=== PATIENT | female | born 1990 | race Caucasian/White ===

== ENCOUNTER 2020-12-27 12:23 | Inpatient (IN) | payer MEDICAID, OTHER ==
--- NOTE | 2020-12-27 12:46 | ED ---
General Adult HPI - General Chief complaint: Psychiatric Symptoms Stated complaint: EPS eval Time Seen by Provider: 12/27/20 12:32 Source: patient, RN notes reviewed, old records reviewed Mode of arrival: ambulatory Limitations: no limitations - History of Present Illness Initial comments: 30-year-old female presenting for psychiatric evaluation. Patient states she's had increased depression, intermittent suicidal thoughts. She denies suicide attempt. She admits to alcohol consumption earlier today. She denies illicit drugs. She denies medication overdose. She has no physical complaints - Related Data Home Medications Medication Instructions Recorded Confirmed Naltrexone HCl [Revia] 50 mg PO DAILY 12/27/20 12/27/20 Pregabalin [Lyrica] 150 mg PO DAILY 12/27/20 12/27/20 Sertraline [Zoloft] 50 mg PO DAILY 12/27/20 12/27/20 lamoTRIgine [LaMICtal] 25 mg PO DAILY 12/27/20 12/27/20 Allergies Allergy/AdvReac Type Severity Reaction Status Date / Time No Known Allergies Allergy Verified 12/27/20 13:41 Review of Systems ROS Statement: Those systems with pertinent positive or pertinent negative responses have been documented in the HPI. ROS Other: All systems not noted in ROS Statement are negative. Past Medical History Past Medical History: No Reported History History of Any Multi-Drug Resistant Organisms: None Reported Past Surgical History: Appendectomy, Cholecystectomy, Tubal Ligation Past Psychological History: Bipolar, Depression Smoking Status: Never smoker Past Alcohol Use History: Daily, Heavy Past Drug Use History: Marijuana General Exam Limitations: no limitations General appearance: alert, anxious Head exam: Present: atraumatic, normocephalic Eye exam: Present: normal appearance, PERRL ENT exam: Present: normal exam Neck exam: Present: normal inspection. Absent: tenderness, meningismus Respiratory exam: Present: normal lung sounds bilaterally. Absent: respiratory distress Cardiovascular Exam: Present: normal rhythm, tachycardia GI/Abdominal exam: Present: soft. Absent: distended, tenderness Extremities exam: Present: normal inspection, normal capillary refill. Absent: pedal edema Neurological exam: Present: alert, oriented X3, CN II-XII intact. Absent: motor sensory deficit Psychiatric exam: Present: depressed, suicidal ideation Skin exam: Present: warm, dry, intact. Absent: cyanosis, diaphoretic Course Vital Signs 12/27/20 12:26 Temperature 98.8 F Pulse Rate 120 H Respiratory 16 Rate Blood Pressure 148/78 O2 Sat by Pulse 100 Oximetry - Reevaluation(s) Reevaluation #1: 12/27/20 12:45 Patient cleared for EPS Medical Decision Making - Medical Decision Making Patient has signed and for inpatient psychiatric evaluation and treatment. She will be admitted to this institution. - Lab Data Lab Results 12/27/20 Range/Units 13:48 Urine Opiates Screen Not Detected (NotDetected) Ur Oxycodone Screen Not Detected (NotDetected) Urine Methadone Screen Not Detected (NotDetected) Ur Propoxyphene Screen Not Detected (NotDetected) Ur Barbiturates Screen Not Detected (NotDetected) U Tricyclic Antidepress Not Detected (NotDetected) Ur Phencyclidine Scrn Not Detected (NotDetected) Ur Amphetamines Screen Not Detected (NotDetected) U Methamphetamines Scrn Not Detected (NotDetected) U Benzodiazepines Scrn Not Detected (NotDetected) Urine Cocaine Screen Not Detected (NotDetected) U Marijuana (THC) Screen Detected H (NotDetected) Disposition Clinical Impression: Depression, Suicidal ideation Disposition: ADMITTED IP TO THIS [facility] Condition: Stable Is patient prescribed a controlled substance at d/c from ED?: No Referrals: Gumaro Barroso MD [Primary Care Provider] - 1-2 days Decision to Admit Reason: Admit from EC Decision Date: 12/27/20 Decision Time: 14:50
[2020-12-27 14:23] LABS: Amphetamine Screen,Urine Not Detected (NotDetected); Barbiturate Screen,Urine Not Detected (NotDetected); Benzodiazepines Screen,Urine Not Detected (NotDetected); Cocaine Screen,Urine Not Detected (NotDetected); Methadone Screen, Urine Not Detected (NotDetected); Opiate Screen,Urine Not Detected (NotDetected); Oxycodone Screen, Urine Not Detected (NotDetected); Phencyclidine Screen,Urine Not Detected (NotDetected); Tricyclic Antidepressant,Urine Not Detected (NotDetected); Urn Cannabinoid Scrn Detected (NotDetected)
[2020-12-27] MEDS ORDERED: MAGNESIUM HYDROXIDE 2,400 MG/10 ML CUP PO PRN (17:15)
[2020-12-27] MEDS ORDERED: MAG HYDROX/AL HYDROX/SIMETH 30 ML CUP PO PRN (17:15)
[2020-12-27] MEDS ORDERED: ACETAMINOPHEN TAB 325 MG TAB PO PRN (17:15)
[2020-12-27] MEDS ORDERED: LORazepam 1 MG TAB PO PRN (17:15)
[2020-12-27] MEDS ORDERED: LORazepam 2 MG/ML INJ IM PRN (17:27)
[2020-12-27] MEDS ORDERED: HALOPERIDOL LACTATE 5 MG/ML 1 ML VIAL IM PRN (17:28)
[2020-12-27] MEDS ORDERED: haloperidoL 5 MG TAB PO PRN (17:28)
[2020-12-27] MEDS: PREGABALIN 75 MG CAP PO SCH (22:03)
[2020-12-28 06:43] LABS: Basophils # (A) 0.1 k/uL (0-0.2); Basophils % (A) 1 %; Eosinophils # (A) 0.3 k/uL (0-0.7); Eosinophils % (A) 3 %; HCT 43.5 % (34.0-46.0); HGB 14.3 gm/dL (11.4-16.0); Lymphocytes # (A) 2.8 k/uL (1.0-4.8); Lymphocytes % (A) 29 %; MCH 32.9 pg (25.0-35.0); MCHC 32.9 g/dL (31.0-37.0); MCV 99.8 fL (80.0-100.0); Mean Platelet Volume 8.4; Monocytes # (A) 0.7 k/uL (0-1.0); Monocytes % (A) 7 %; Neutrophils # (A) 5.8 k/uL (1.3-7.7); Neutrophils % (A) 59 %; Platelet Count 222 k/uL (150-450); RBC 4.36 m/uL (3.80-5.40); RDW 12.1 % (11.5-15.5); WBC 9.8 k/uL (3.8-10.6)
[2020-12-28 07:00] LABS: ALT 14 U/L (4-34); AST 28 U/L (14-36); African American GFR (CKD) >90 (>60 ml/min/1.73 sqM); Alkaline Phosphatase 47 U/L (38-126); Anion Gap 7 mmol/L; Blood Urea Nitrogen 7 mg/dL (7-17); Calcium 9.5 mg/dL (8.4-10.2); Carbon Dioxide 27 mmol/L (22-30); Chloride 105 mmol/L (98-107); Glucose 91 mg/dL (74-99); Non-African American GFR(CKD) >90 (>60 ml/min/1.73 sqM); Potassium 4.5 mmol/L (3.5-5.1); Sodium 139 mmol/L (137-145); Total Bilirubin 1.4 mg/dL (0.2-1.3); Total Protein 6.9 g/dL (6.3-8.2)
[2020-12-28] MEDS: NALTREXONE HCL 50 MG TAB PO SCH (09:05)
[2020-12-28] MEDS: SERTRALINE 100 MG TAB PO SCH (09:05)
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
[2020-12-28] MEDS: PREGABALIN 75 MG CAP PO SCH (20:08)
[2020-12-29 06:43] VITALS: BP 117/73; PULSE 67; RESP 16; TEMP 98.1
[2020-12-29] MEDS: SERTRALINE 100 MG TAB PO SCH (08:32)
[2020-12-29] MEDS: NALTREXONE HCL 50 MG TAB PO SCH (08:32)
--- NOTE | 2020-12-29 11:38 | P.DS ---
Providers Date of admission: 12/27/20 16:48 Expected date of discharge: 12/29/20 Attending physician: Andrew Garcia MD Consults: 12/27/20 17:15 Consult Physician Routine Consulting Provider: Charli Judd Consult Reason/Comments: H&P Do you want consulting provider notified?: Yes Primary care physician: Gumaro Barroso - Discharge Diagnosis(es) (1) Depressive disorder Current Visit: Yes Status: Acute Priority: High (2) Cannabis use disorder, mild, abuse Current Visit: Yes Status: Acute Priority: Medium (3) Alcohol abuse Current Visit: Yes Status: Acute Priority: Medium Hospital Course: Admission HPI: Admission note was completed by Dr. Cosme "The patient is a 30-year-old female who presented to the ED acutely distressed. Her presenting compliant with that she feels "very unstable" and talked about having intermittent suicidal thoughts. I interviewed the patient and reviewed the chart. She told the EPS nurse that she was feeling depressed. She was out drinking with her sister on the evening prior to admission. She has a history of alcohol use problems and was prescribed ReVia by her primary for treatment of her alcohol use. She planned on going out drinking with a girlfriend and talked about discussing this plan with her primary care provider. Instead of going out girlfriend she went with her sister to a bar and drank excessively. She stated that she spent the night with the man she described an "enemy" of her boyfriend. The following morning she felt guilty and remorseful. She came to the emergency room because she would talk about her concerns with her primary care provider. She had expectation that if she were able to speak with a physician she would become calm and be able to return home to her boyfriend. The original recommendation was to discharge home with referrals for outpatient mental health services. However, she told the ER physician that her plan was to go to her alvarez and start a fire. The ED physician interpreted this as a suicide plan. She stated that her family has a rustic cabin with no heat or electricity. She goes with When she wants to find "peace". Her plan was to start a fire in the fireplace and spend the night there to calm herself before she returns home. She described fleeting thoughts of suicide since she started Lamictal. She denied suicide intent or plan. She denied a history of suicide attempts or gestures. Her primary concern was her alcohol use and she talked about the struggle she has with controlling her alcohol use. She believes that she has been drinking less since she started ReVia. She denied use of drugs with the exception of marijuana. She has a history of depression for which the primary prescribed Zoloft but the maximum dose was only 50 mg per day. The primary added Lamictal to augment the lower dose of the antidepressant. She denied a history of elevated mood or sustained irritability suggestive of yina or hypomania. She denied persistent uncontrolled anxiety that interfered with her ability to function. She denied obsessions or compulsions. She denied such psychotic symptoms as hallucinations, paranoia or confusion." Hospital course: Upon admission to the unit patient was initially depressed however cooperative and directable and agreeable to commence treatment and signed adult voluntary form. Patient got along well with other patients on the unit and followed unit protocol. Patient was compliant with the medications and denied any side effects throughout hospital course. Patient was started on Zoloft and titrate up the dose of 100 mg daily for mood/anxiety. Patient was also restarted on her naltrexone 50 mg daily for alcohol cravings. Patient spoke of her stressors and engaged in therapy both group and individual. Patient was also seen by medical team for history and physical exam. Throughout the course of the hospitalization patient gradually improved with regards to mood, anxiety, sleep and became more future oriented with improved insight and judgment. On the day of discharge patient denied any suicidal or homicidal ideations intent or plan denied any auditory or visual hallucinations. Patient endorsed wanting to live for her kids and her future. The patient denied any access to guns or weapons. Patient denied any paranoia and did not endorse any delusions. Patient does have a significant history of substance abuse and was counseled on abstaining from all substances including alcohol and marijuana. Patient elected to do outpatient substance use treatment program for her substance abuse and also agreed to continue taking naltrexone for alcohol cravings. Patient was also counseled on the medications and need for regular compliance and was encouraged to follow-up with their outpatient appointment for mental health and also for primary care. Prior to discharge a family meeting with patient's boyfriend Jagjit will be arranged by director social to answer any questions and ensure safety upon discharge and to ensure that there are no guns/weapons in the house or that they are locked away. Mental status exam: General Appearance: Patient appears to be thin, stated age is alert, pleasant, and cooperative. Patient is in no acute distress and has improved hygiene and grooming Behavior: Patient is calmly seated without any agitated behavior. Speech: Patient's speech is fluent and nonpressured. Mood/Affect: Patient reports their mood is "good", affect is congruent and euthymic. Suicidality/Homicidality: Patient denies having any suicidal or homicidal ideation intent or plan. Perceptions: Patient denies any auditory or visual hallucinations. Though content/process: There is no evidence of any delusional thought content and thought process is linear and goal-directed. more future oriented Memory and concentration: AOX3, grossly intact for the purposes of this session. Can spell "WORLD" backwards correctly. Judgment and insight: improved with guarded prognosis Impression: Depressive disorder unspecified, rule out major depressive disorder recurrent versus alcohol-induced depressive disorder Alcohol abuse Cannabis use disorder mild Plan: -Continue with discharge today as patient has improved and stabilized psychiatrically and is not currently an imminent threat to herself and/or others. -Continue medications: Continue Zoloft 100 mg daily for mood/anxiety, naltrexone 50 mg daily for alcohol cravings. -Patient was counseled on the need for medication compliance and appropriate follow-up at mental health and also primary care for medical issues. Patient verbalized understanding and agreed. -Social work to arrange for and conduct family meeting to ensure safety upon discharge and answer any questions/concerns. Social work also to arrange for patients follow up appointments with [facility] for psychiatric care along with follow up with primary care provider. -Patient counseled on abstaining from recreational drugs and marijuana and alcohol. Was informed/educated on the adverse effects on their physical and mental health. Patient verbally agreed and understood. Patient was agreeable to continue on with outpatient treatment and also to continue on with naltrexone for alcohol cravings. -Patient was instructed to return to the hospital or seek immediate medical care if their psychiatric or medical symptoms do worsen or reoccur. Allergies Allergy/AdvReac Type Severity Reaction Status Date / Time No Known Allergies Allergy Verified 12/27/20 13:41 Laboratory Results WBC 9.8 k/uL (3.8-10.6) 12/28/20 06:22 RBC 4.36 m/uL (3.80-5.40) 12/28/20 06:22 Hgb 14.3 gm/dL (11.4-16.0) 12/28/20 06:22 Hct 43.5 % (34.0-46.0) 12/28/20 06:22 MCV 99.8 fL (80.0-100.0) 12/28/20 06:22 MCH 32.9 pg (25.0-35.0) 12/28/20 06:22 MCHC 32.9 g/dL (31.0-37.0) 12/28/20 06:22 RDW 12.1 % (11.5-15.5) 12/28/20 06:22 Plt Count 222 k/uL (150-450) 12/28/20 06:22 MPV 8.4 12/28/20 06:22 Neutrophils % 59 % 12/28/20 06:22 Lymphocytes % 29 % 12/28/20 06:22 Monocytes % 7 % 12/28/20 06:22 Eosinophils % 3 % 12/28/20 06:22 Basophils % 1 % 12/28/20 06:22 Neutrophils # 5.8 k/uL (1.3-7.7) 12/28/20 06:22 Lymphocytes # 2.8 k/uL (1.0-4.8) 12/28/20 06:22 Monocytes # 0.7 k/uL (0-1.0) 12/28/20 06:22 Eosinophils # 0.3 k/uL (0-0.7) 12/28/20 06:22 Basophils # 0.1 k/uL (0-0.2) 12/28/20 06:22 Sodium 139 mmol/L (137-145) 12/28/20 06:22 Potassium 4.5 mmol/L (3.5-5.1) 12/28/20 06:22 Chloride 105 mmol/L (98-107) 12/28/20 06:22 Carbon Dioxide 27 mmol/L (22-30) 12/28/20 06:22 Anion Gap 7 mmol/L 12/28/20 06:22 BUN 7 mg/dL (7-17) 12/28/20 06:22 Creatinine 0.59 mg/dL (0.52-1.04) 12/28/20 06:22 Est GFR (CKD-EPI)AfAm >90 (>60 ml/min/1.73 sqM) 12/28/20 06:22 Est GFR (CKD-EPI)NonAf >90 (>60 ml/min/1.73 sqM) 12/28/20 06:22 Glucose 91 mg/dL (74-99) 12/28/20 06:22 Calcium 9.5 mg/dL (8.4-10.2) 12/28/20 06:22 Total Bilirubin 1.4 mg/dL (0.2-1.3) H 12/28/20 06:22 AST 28 U/L (14-36) 12/28/20 06:22 ALT 14 U/L (4-34) 12/28/20 06:22 Alkaline Phosphatase 47 U/L (38-126) 12/28/20 06:22 Total Protein 6.9 g/dL (6.3-8.2) 12/28/20 06:22 Albumin 4.0 g/dL (3.5-5.0) 12/28/20 06:22 TSH 2.820 mIU/L (0.465-4.680) 12/28/20 06:22 Urine Opiates Screen Not Detected (NotDetected) 12/27/20 13:48 Ur Oxycodone Screen Not Detected (NotDetected) 12/27/20 13:48 Urine Methadone Screen Not Detected (NotDetected) 12/27/20 13:48 Ur Propoxyphene Screen Not Detected (NotDetected) 12/27/20 13:48 Ur Barbiturates Screen Not Detected (NotDetected) 12/27/20 13:48 U Tricyclic Antidepress Not Detected (NotDetected) 12/27/20 13:48 Ur Phencyclidine Scrn Not Detected (NotDetected) 12/27/20 13:48 Ur Amphetamines Screen Not Detected (NotDetected) 12/27/20 13:48 U Methamphetamines Scrn Not Detected (NotDetected) 12/27/20 13:48 U Benzodiazepines Scrn Not Detected (NotDetected) 12/27/20 13:48 Urine Cocaine Screen Not Detected (NotDetected) 12/27/20 13:48 U Marijuana (THC) Screen Detected (NotDetected) H 12/27/20 13:48 Coronavirus (PCR) Not Detected (Not Detectd) 12/27/20 15:16 Vital Signs Temp 98.1 F 12/29/20 06:42 Pulse 67 12/29/20 06:42 Resp 16 12/29/20 06:42 BP 117/73 12/29/20 06:42 Pulse Ox 98 12/27/20 17:07 Intake & Output 12/28/20 12/29/20 12/29/20 18:59 06:59 18:59 Weight 66.4 kg Patient Condition at Discharge: Stable Plan - Discharge Summary Discharge Rx Participant: No New Discharge Prescriptions: New Naltrexone HCl [Revia] 50 mg PO DAILY 30 Days tab Sertraline [Zoloft] 100 mg PO DAILY 30 Days tab Continue Pregabalin [Lyrica] 150 mg PO DAILY Discontinued lamoTRIgine [LaMICtal] 25 mg PO DAILY Sertraline [Zoloft] 50 mg PO DAILY Naltrexone HCl [Revia] 50 mg PO DAILY Discharge Medication List Pregabalin [Lyrica] 150 mg PO DAILY 12/27/20 [History] Naltrexone HCl [Revia] 50 mg PO DAILY 30 Days tab 12/29/20 [Rx] Sertraline [Zoloft] 100 mg PO DAILY 30 Days tab 12/29/20 [Rx] Follow up Appointment(s)/Referral(s): Gumaro Barroso MD [Primary Care Provider] - 1-2 days Activity/Diet/Wound Care/Special Instructions: Activity and diet as tolerated. Avoid the use of street drugs and alcohol. Take all medications as prescribed. When you are in need of refills on your medications please contact your medical provider and/or outpatient psychiatrist to have this done. Please go to scheduled outpatient appointment for aftercare treatment. If symptoms return or become worse, call the crisis line at and/or go to the nearest emergency room for evaluation. Discharge Disposition: HOME SELF-CARE
== END 2020-12-29 13:42 | disposition home or self-care (01) | DRG 897 ==
LOC: EC 12:23 → 3MHU 16:48
PROVIDERS: ADMIT Psychiatry & Neurology Psychiatry; ATTEND Psychiatry & Neurology Psychiatry
DX: F10.24 Alcohol dependence with alcohol-induced mood disorder (principal); R45.851 Suicidal ideations; F12.10 Cannabis abuse, uncomplicated; Z71.41 Alcohol abuse counseling and surveillance of alcoholic; Z20.822 Contact with and (suspected) exposure to COVID-19; F41.9 Anxiety disorder, unspecified; G25.81 Restless legs syndrome; Z79.899 Other long term (current) drug therapy; Z90.49 Acquired absence of other specified parts of digestive tract; Z98.51 Tubal ligation status
CPT/HCPCS: 80053; 80306; 82075; 84443; 85025; 87635; 99285

== ENCOUNTER 2023-01-07 21:44 | Emergency (ER) | payer OTHER ==
[2023-01-07 21:50] VITALS: TEMP 97.4
[2023-01-07] MEDS ORDERED: MORPHINE SULFATE 4 MG/ML SYRINGE IM STA (22:28)
--- NOTE | 2023-01-07 22:40 | ED ---
General Adult HPI - General Chief complaint: Fall Stated complaint: Fall, Head Injury Time Seen by Provider: 01/07/23 21:54 Source: patient Mode of arrival: wheelchair Limitations: no limitations - History of Present Illness Initial comments: Dictation was produced using [employer] dictation software. please excuse any grammatical, word or spelling errors. Chief Complaint: 32-year-old female presents with head pain and neck pain and back pain and elbow pain after fall History of Present Illness: Patient is a 32-year-old female at 9 AM she was in the shower at the local gym. She slipped fell backwards she struck her head. Denies loss of consciousness. Patient had an interview that she didn't want a message with the interview instead of seeking medical attention. Patient does not take any anticoagulant medications. She denies any past medical history. She complains of elbow pain. She is able to ambulate with no problems. She has had some nausea and vomiting over the last couple hours. Denies any numbness or paresthesias to the arms or legs. The ROS documented in this emergency department record has been reviewed and confirmed by me. Those systems with pertinent positive or negative responses have been documented in the HPI. All other systems are other negative and/or noncontributory. PHYSICAL EXAM: General Impression: Alert and oriented x3, not in acute distress HEENT: Normocephalic atraumatic, extra-ocular movements intact, pupils equal and reactive to light bilaterally, mucous membranes moist. Cardiovascular: Heart regular rate and rhythm Chest: Able to complete full sentences, no retractions, no tachypnea Abdomen: abdomen soft, non-tender, non-distended, no organomegaly Musculoskeletal: Pulses present and equal in all extremities, no peripheral edema Motor: no focal deficits noted Neurological: CN II-XII grossly intact, no focal motor or sensory deficits noted Skin: Intact with no visualized rashes Psych: Normal affect and mood ED course: 32-year-old well-appearing female presents to emergency department after mechanical fall. Allegedly occurred at around 9 AM. vital signs upon arrival are within acceptable limits. Symptoms likely secondary concussion. Nursing notes and chart review was performed Was pt. sent in by a medical professional or institution (, PA, [employer]/SUPERINTENDANT, urgent care, hospital, or prison...) When possible be specific @ -No Did you speak to anyone other than the patient for history (EMS, parent, family, police, friend...)? What history was obtained from this source @ -No Did you review nursing and triage notes (agree or disagree)? Why? @ -I reviewed and agree with nursing and triage notes Were old charts reviewed (outside hosp., previous admission, EMS record, old EKG, old radiological studies, urgent care reports/EKG's, prison records)? Report findings @ -No old charts were reviewed Differential Diagnosis (chest pain, altered mental status, abdominal pain women, abdominal pain men, vaginal bleeding, musculoskeletal, weakness, fever, dyspnea, syncope, headache, dizziness, GI bleed, back pain, seizure, CVA, palpatations, mental health)? @ -not applicable EKG interpreted by me (3pts min.). @ -None done X-rays interpreted by me (1pt min.). @ -Above x-rays unremarkable. CT interpreted by me (1pt min.). @ -Skin the head C-spine and lumbar spine are all negative. U/S interpreted by me (1pt. min.). @ -None done What testing was considered but not performed or refused? (CT, X-rays, U/S, labs)? Why? @ -None What meds were considered but not given or refused? Why? @ -None Did you discuss the management of the patient with other professionals (professionals i.e. , PA, [employer]/SUPERINTENDANT, lab, RT, psych nurse, addiction social worker, court deputy, teacher, privacy officer, human services case manager)? Give summary @ -No Was smoking cessation discussed for >3mins.? @ -No Was critical care preformed (if so, how long)? @ -No Were there social determinants of health that impacted care today? How? (Homelessness, low income, unemployed, alcoholism, drug addiction, transportation, low edu. Level, literacy, decrease access to med. care, fci, rehab)? @ -No Was there de-escalation of care discussed even if they declined (Discuss DNR or withdrawal of care, Hospice)? DNR status @ -No What co-morbidities impacted this encounter? (DM, HTN, Smoking, COPD, CAD, Cancer, CVA, ARF, Chemo, Hep., AIDS, mental health diagnosis, sleep apnea, morbid obesity)? @ -None Was patient admitted / discharged? Hospital course, mention meds given and route, prescriptions, significant lab abnormalities, going to OR and other pertinent info. @ -Year-old female who is well-appearing presents emergency department after fall. Imaging studies are negative for traumatic processes. presentation suspicious for concussion. Patient given starter pack for antinausea medications. Advised follow-up with primary care doctor. Patient counseled on no exertional activity until cleared by primary care doctor. Undiagnosed new problem with uncertain prognosis? @ -No Drug Therapy requiring intensive monitoring for toxicity (Heparin, Nitro, Insulin, Cardizem)? @ -No Were any procedures done? @ -No Diagnosis/symptom? Acute, or Chronic, or Acute on Chronic? Uncomplicated (without systemic symptoms) or Complicated (systemic symptoms)? @ -1. Acute concussion, 2. Head contusion, neck strain and elbow contusion Side effects of treatment? @ -No Exacerbation, Progression, or Severe Exacerbation? @ -No Poses a threat to life or bodily function? How? (Chest pain, [place], IA, pneumonia, PE, COPD, DKA, ARF, appy, cholecystitis, CVA, Diverticulitis, Homicidal, Suicidal, threat to staff... and all critical care pts) @ -No - Related Data Home Medications Medication Instructions Recorded Confirmed Ferrous Sulfate [Feosol] 325 mg PO HS 09/22/20 09/22/20 Pregabalin [Lyrica] 150 mg PO HS 09/22/20 09/22/20 Sertraline [Zoloft] 25 mg PO HS 09/22/20 09/22/20 Pregabalin [Lyrica] 150 mg PO DAILY 12/27/20 12/27/20 Previous Rx's Medication Instructions Recorded Famotidine [Pepcid] 20 mg PO HS #30 tablet 09/22/20 Ondansetron [Zofran ODT] 4 mg PO Q8HR PRN #10 tab 09/22/20 Naltrexone HCl [Revia] 50 mg PO DAILY 30 Days tab 12/29/20 Sertraline [Zoloft] 100 mg PO DAILY 30 Days tab 12/29/20 Allergies Allergy/AdvReac Type Severity Reaction Status Date / Time No Known Allergies Allergy Verified 01/07/23 21:50 Review of Systems ROS Statement: Those systems with pertinent positive or pertinent negative responses have been documented in the HPI. ROS Other: All systems not noted in ROS Statement are negative. Past Medical History Past Medical History: No Reported History Additional Past Medical History / Comment(s): restless legs History of Any Multi-Drug Resistant Organisms: None Reported Past Surgical History: Appendectomy, Cholecystectomy, Tubal Ligation Additional Past Surgical History / Comment(s): wisdom teeth extraction Past Anesthesia/Blood Transfusion Reactions: No Reported Reaction Past Psychological History: Anxiety, Bipolar, Depression Smoking Status: Never smoker Past Alcohol Use History: Daily, Heavy Past Drug Use History: Marijuana - Past Family History Brother(s) Additional Family Medical History / Comment(s): gall bladder surgery General Exam Limitations: no limitations Course Vital Signs 01/07/23 21:46 Temperature 97.4 F L Pulse Rate 55 L Respiratory 20 Rate Blood Pressure 137/86 O2 Sat by Pulse 99 Oximetry Disposition Clinical Impression: Concussion Disposition: HOME SELF-CARE Condition: Good Instructions (If sedation given, give patient instructions): Concussion (ED) Is patient prescribed a controlled substance at d/c from ED?: No Referrals: Gumaro Barroso MD [Primary Care Provider] - 1-2 days Time of Disposition: 23:13
--- NOTE | 2023-01-07 22:59 | CT ---
EXAMINATION TYPE: CT brain cspine wo con DATE OF EXAM: 01/07/2023 COMPARISON: CT brain 03/11/2018 HISTORY: syncope CT DLP: 1400.6 mGycm Automated exposure control for dose reduction was used. Images obtained of the brain and cervical spine with no contrast. Ventricles have normal size. There is no mass effect or midline shift. No sign of intracranial hemorr pablo. Calvarium is intact. There is normal aeration of the mastoid sinuses. The skull base is intact. The cervical vertebra have normal alignment. Disc spaces are fairly normal. No compression fracture. Facet joints are intact. Prevertebral soft tissues are intact IMPRESSION: Negative CT scan of the brain. Negative CT scan cervical spine.
--- NOTE | 2023-01-07 23:02 | XR ---
EXAMINATION TYPE: XR elbow complete RT DATE OF EXAM: 01/07/2023 COMPARISON: NONE HISTORY: Pain. Fall TECHNIQUE: 3 views FINDINGS: There is no evidence of fracture nor dislocation. Elbow joint spaces are normal. No patholo gic calcification. IMPRESSION: Negative right elbow exam.
--- NOTE | 2023-01-07 23:03 | CT ---
EXAMINATION TYPE: CT lumbar spine wo con DATE OF EXAM: 01/07/2023 COMPARISON: 09/22/2020 HISTORY: syncope Back pain CT DLP: 2134.2 mGycm Automated exposure control for dose reduction was used. Images obtained from T12 to S3 vertebra with no contrast. Normal spacing and alignment. Posterior elements are intact. No compression fracture. Facet joints ar e intact. Prevertebral soft tissues are intact. Sacroiliac joints appear intact. There is no lumbar p araspinal mass. IMPRESSION: Normal CT scan of the lumbar spine. No change.
[2023-01-07] MEDS ORDERED: ONDANSETRON 4 MG ODT STARTER PACK 2 TAB BTL PO STA (23:13)
[2023-01-07] MEDS ORDERED: ACET/COD 300 MG/30 MG STARTER PACK 6 TAB BTL PO STA (23:13)
[2023-01-07] MEDS ORDERED: ONDANSETRON ODT 4 MG TAB PO STA (23:24)
[2023-01-07 23:28] VITALS: BP 123/79; PULSE 60; RESP 18
== END 2023-01-07 23:28 | disposition home or self-care (01) ==
LOC: EC 21:44
DX: S06.0X0A Concussion without loss of consciousness, initial encounter (principal); F31.9 Bipolar disorder, unspecified; F41.9 Anxiety disorder, unspecified; W01.0XXA Fall on same level from slipping, tripping and stumbling without subsequent striking against object, initial encounter
CPT/HCPCS: 99284; 96372; 73080; 72125; 72131; 70450; J2270; S0119

== ENCOUNTER 2023-09-30 06:37 | Emergency (ER) | payer OTHER ==
[2023-09-30 06:50] VITALS: RESP 18; TEMP 97.5
[2023-09-30] MEDS ORDERED: KETOROLAC 15 MG/ML 1 ML VIAL IVP STA (07:43)
[2023-09-30] MEDS ORDERED: SODIUM CHLORIDE 0.9% 1,000 ML IV STA (07:43)
--- NOTE | 2023-09-30 07:47 | ED ---
General Adult HPI - General Chief complaint: Upper Respiratory Infection Stated complaint: Chest pain, SOB Time Seen by Provider: 09/30/23 07:07 Source: patient Mode of arrival: ambulatory Limitations: no limitations - History of Present Illness Initial comments: Dictation was produced using [employer] dictation software. please excuse any grammatical, word or spelling errors. Chief Complaint: 33-year-old female 3-4 days of viral symptoms History of Present Illness: Patient 33-year-old female she's been feeling sick and now for the last 3-4 days. She's had fever constitutional symptoms along with nasal congestion and diarrhea. Patient states that her symptoms have been ongoing for the last 34 days not really getting much better. She also does have pleuritic chest pain that's to the bilateral chest. Worse when she moves or c oughs. She has no medical comorbidities. She has history of bilateral tubal ligation. Denies any abdominal pain. She has had nonbilious nonbloody diarrhea. The ROS documented in this emergency department record has been reviewed and confirmed by me. Those systems with pertinent positive or negative responses have been documented in the HPI. All other systems are other negative and/or noncontributory. - Related Data Home Medications Medication Instructions Recorded Confirmed Pregabalin [Lyrica] 450 mg PO HS 09/22/20 09/30/23 OXcarbazepine [Trileptal] 300 mg PO HS 09/30/23 09/30/23 Sertraline [Zoloft] 50 mg PO HS 09/30/23 09/30/23 Allergies Allergy/AdvReac Type Severity Reaction Status Date / Time No Known Allergies Allergy Verified 09/30/23 08:46 Review of Systems ROS Statement: Those systems with pertinent positive or pertinent negative responses have been documented in the HPI. ROS Other: All systems not noted in ROS Statement are negative. Past Medical History Past Medical History: No Reported History Additional Past Medical History / Comment(s): restless legs History of Any Multi-Drug Resistant Organisms: None Reported Past Surgical History: Appendectomy, Cholecystectomy, Tubal Ligation Additional Past Surgical History / Comment(s): wisdom teeth extraction Past Anesthesia/Blood Transfusion Reactions: No Reported Reaction Past Psychological History: Anxiety, Bipolar, Depression Smoking Status: Never smoker Past Alcohol Use History: Daily, Heavy Past Drug Use History: Marijuana - Past Family History Brother(s) Additional Family Medical History / Comment(s): gall bladder surgery General Exam - General Exam Comments Initial Comments: PHYSICAL EXAM: General Impression: Alert and oriented x3, not in acute distress HEENT: Normocephalic atraumatic, extra-ocular movements intact, pupils equal and reactive to light bilaterally, mucous membranes moist. Cardiovascular: Heart regular rate and rhythm Chest: Able to complete full sentences, no retractions, no tachypnea Abdomen: abdomen soft, non-tender, non-distended, no organomegaly Musculoskeletal: Pulses present and equal in all extremities, no peripheral edema Motor: no focal deficits noted Neurological: CN II-XII grossly intact, no focal motor or sensory deficits noted Skin: Intact with no visualized rashes Psych: Normal affect and mood Limitations: no limitations Course Vital Signs 09/30/23 06:43 Temperature 97.5 F L Pulse Rate 94 Respiratory 18 Rate Blood Pressure 122/87 O2 Sat by Pulse 100 Oximetry EKG Findings - EKG Comments: EKG Findings:: My EKG interpretation: Ventricular rate 87, sinus rhythm,. Interval 128, QRS 96, QTC 410. No [place] prolongation, no QTC prolongation, no ST or T-wave changes noted. Overall, this EKG is unremarkable Medical Decision Making - Medical Decision Making Was pt. sent in by a medical professional or institution (, PA, COIL W[employer]ER [employer], urgent care, hospital, or care home...) When possible be specific @ -No Did you speak to anyone other than the patient for history (EMS, parent, family, police, friend...)? What history was obtained from this source @ -No Did you review nursing and triage notes (agree or disagree)? Why? @ -I reviewed and agree with nursing and triage notes Were old charts reviewed (outside hosp., previous admission, EMS record, old EKG, old radiological studies, urgent care reports/EKG's, care home records)? Report findings @ -No old charts were reviewed Differential Diagnosis (chest pain, altered mental status, abdominal pain women, abdominal pain men, vaginal bleeding, musculoskeletal, weakness, fever, dyspnea, syncope, headache, dizziness, GI bleed, back pain, seizure, CVA, palpatations, mental health)? @ -not applicable EKG interpreted by me (3pts min.). @ -see above X-rays interpreted by me (1pt min.). @ -Is chest x-rays negative for acute processes CT interpreted by me (1pt min.). @ -None done U/S interpreted by me (1pt. min.). @ -None done What testing was considered but not performed or refused? (CT, X-rays, U/S, labs)? Why? @ -None What meds were considered but not given or refused? Why? @ -None Did you discuss the management of the patient with other professionals (professionals i.e. , PA, [employer] W[employer], lab, RT, psych nurse, social media designer, marketing and promotions manager, teacher, assistant chief nursing officer, top case assembler)? Give summary @ -No Was smoking cessation discussed for >3mins.? @ -No Was critical care preformed (if so, how long)? @ -No Were there social determinants of health that impacted care today? How? (Homelessness, low income, unemployed, alcoholism, drug addiction, transportation, low edu. Level, literacy, decrease access to med. care, correction, rehab)? @ -No Was there de-escalation of care discussed even if they declined (Discuss DNR or withdrawal of care, Hospice)? DNR status @ -No What co-morbidities impacted this encounter? (DM, HTN, Smoking, COPD, CAD, Cancer, CVA, ARF, Chemo, Hep., AIDS, mental health diagnosis, sleep apnea, morbid obesity)? @ -None Was patient admitted / discharged? Hospital course, mention meds given and route, prescriptions, significant lab abnormalities, going to OR and other pertinent info. @ -33-year-old female with cold and flulike symptoms. Vital signs stable. Labs are unremarkable. Swabs are negative. Chest x-ray negative. Patient given fluids and NSAID. Objective emergency part stable medical condition. Patient discharged. Undiagnosed new problem with uncertain prognosis? @ -No Drug Therapy requiring intensive monitoring for toxicity (Heparin, Nitro, Insulin, Cardizem)? @ -No Were any procedures done? @ -No Diagnosis/symptom? Acute, or Chronic, or Acute on Chronic? Uncomplicated (with out systemic symptoms) or Complicated (systemic symptoms)? @ -Viral infection Side effects of treatment? @ -No Exacerbation, Progression, or Severe Exacerbation? @ -No Poses a threat to life or bodily function? How? (Chest pain, [place], [place], pneumonia, PE, COPD, DKA, ARF, appy, cholecystitis, CVA, Diverticulitis, Homicidal, Suicidal, threat to staff... and all critical care pts) @ -No - Lab Data Result diagrams: 09/30/23 08:52 09/30/23 08:52 Lab Results 09/30/23 09/30/23 09/30/23 Range/Units 07:23 08:52 08:52 WBC 5.7 (3.8-10.6) k/uL RBC 4.17 (3.80-5.40) m/uL Hgb 13.2 (11.4-16.0) gm/dL Hct 39.4 (34.0-46.0) % MCV 94.4 (80.0-100.0) fL MCH 31.7 (25.0-35.0) pg MCHC 33.5 (31.0-37.0) g/dL RDW 12.0 (11.5-15.5) % Plt Count 105 L (150-450) k/uL MPV 10.6 Neutrophils % 72 % Lymphocytes % 19 % Monocytes % 5 % Eosinophils % 3 % Basophils % 0 % Neutrophils # 4.1 (1.3-7.7) k/uL Lymphocytes # 1.1 (1.0-4.8) k/uL Monocytes # 0.3 (0-1.0) k/uL Eosinophils # 0.2 (0-0.7) k/uL Basophils # 0.0 (0-0.2) k/uL Sodium 138 (137-145) mmol/L Potassium 4.2 (3.5-5.1) mmol/L Chloride 104 (98-107) mmol/L Carbon Dioxide 21 L (22-30) mmol/L Anion Gap 13 mmol/L BUN 9 (7-17) mg/dL Creatinine 0.48 L (0.52-1.04) mg/dL Est GFR (CKD-EPI)AfAm >90 (>60 ml/min/1.73 sqM) Est GFR (CKD-EPI)NonAf >90 (>60 ml/min/1.73 sqM) Glucose 86 (74-99) mg/dL Calcium 9.6 (8.4-10.2) mg/dL Influenza Type A (PCR) Not Detected (Not Detectd) Influenza Type B (PCR) Not Detected (Not Detectd) RSV (PCR) Not Detected (Not Detectd) SARS-CoV-2 (PCR) Not Detected (Not Detectd) Disposition Clinical Impression: Common cold Disposition: HOME SELF-CARE Condition: Good Instructions (If sedation given, give patient instructions): Upper Respiratory Infection (ED) Is patient prescribed a controlled substance at d/c from ED?: No Referrals: Gumaro Barroso MD [Primary Care Provider] - 1-2 days Time of Disposition: 10:28
--- NOTE | 2023-09-30 08:11 | XR ---
EXAMINATION TYPE: XR chest 2V DATE OF EXAM: 09/30/2023 COMPARISON: 01/03/2023 HISTORY: 33-year-old female with chest pain TECHNIQUE: PA and lateral views FINDINGS: The cardiomediastinal silhouette, aorta, and pulmonary vasculature are within normal limits. Lungs an d pleural spaces are clear. IMPRESSION: No acute cardiopulmonary process.
[2023-09-30 09:04] LABS: Basophils % (A) 0 %; Eosinophils # (A) 0.2 k/uL (0-0.7); Eosinophils % (A) 3 %; HCT 39.4 % (34.0-46.0); HGB 13.2 gm/dL (11.4-16.0); Lymphocytes # (A) 1.1 k/uL (1.0-4.8); Lymphocytes % (A) 19 %; MCH 31.7 pg (25.0-35.0); MCHC 33.5 g/dL (31.0-37.0); MCV 94.4 fL (80.0-100.0); Mean Platelet Volume 10.6; Monocytes # (A) 0.3 k/uL (0-1.0); Monocytes % (A) 5 %; Neutrophils # (A) 4.1 k/uL (1.3-7.7); Neutrophils % (A) 72 %; Platelet Count 105 k/uL (150-450); RBC 4.17 m/uL (3.80-5.40); WBC 5.7 k/uL (3.8-10.6)
[2023-09-30 09:51] LABS: African American GFR (CKD) >90 (>60 ml/min/1.73 sqM); Anion Gap 13 mmol/L; Blood Urea Nitrogen 9 mg/dL (7-17); Calcium 9.6 mg/dL (8.4-10.2); Carbon Dioxide 21 mmol/L (22-30); Chloride 104 mmol/L (98-107); Glucose 86 mg/dL (74-99); Non-African American GFR(CKD) >90 (>60 ml/min/1.73 sqM); Potassium 4.2 mmol/L (3.5-5.1); Sodium 138 mmol/L (137-145)
[2023-09-30 13:52] VITALS: BP 116/78; PULSE 78
== END 2023-09-30 13:38 | disposition home or self-care (01) ==
LOC: EC 06:37
DX: J00 Acute nasopharyngitis [common cold] (principal); F41.9 Anxiety disorder, unspecified; F31.9 Bipolar disorder, unspecified; F12.90 Cannabis use, unspecified, uncomplicated; Z79.899 Other long term (current) drug therapy; Z20.822 Contact with and (suspected) exposure to COVID-19
CPT/HCPCS: 36415; 80048; 85025; 87636; 71046; 99285; 96374; 96361; J1885

== ENCOUNTER 2024-01-23 09:05 | Emergency (ER) | payer OTHER ==
[2024-01-23] MEDS: SODIUM CHLORIDE 0.9% 1,000 ML IV STA (09:39)
[2024-01-23 09:49] VITALS: RESP 16; TEMP 97.8
[2024-01-23 09:49] LABS: Basophils # (A) 0.1 k/uL (0-0.2); Basophils % (A) 1 %; Eosinophils # (A) 0.3 k/uL (0-0.7); Eosinophils % (A) 4 %; HCT 44.3 % (34.0-46.0); HGB 14.7 gm/dL (11.4-16.0); Lymphocytes # (A) 1.5 k/uL (1.0-4.8); Lymphocytes % (A) 16 %; MCH 32.3 pg (25.0-35.0); MCHC 33.2 g/dL (31.0-37.0); MCV 97.3 fL (80.0-100.0); Mean Platelet Volume 9.8; Monocytes # (A) 0.4 k/uL (0-1.0); Monocytes % (A) 4 %; Neutrophils # (A) 6.6 k/uL (1.3-7.7); Neutrophils % (A) 73 %; Platelet Count 255 k/uL (150-450); RBC 4.56 m/uL (3.80-5.40); RDW 12.8 % (11.5-15.5)
[2024-01-23 10:04] LABS: Partial Thromboplastin Time 23.6 sec (22.0-30.0); Prothrombin Time 10.6 sec (10.0-12.5)
[2024-01-23 10:14] LABS: ALT 17 U/L (4-34); AST 26 U/L (14-36); African American GFR (CKD) >90 (>60 ml/min/1.73 sqM); Albumin 4.5 g/dL (3.5-5.0); Alkaline Phosphatase 47 U/L (38-126); Anion Gap 9 mmol/L; Blood Urea Nitrogen 11 mg/dL (7-17); Calcium 9.4 mg/dL (8.4-10.2); Carbon Dioxide 26 mmol/L (22-30); Chloride 106 mmol/L (98-107); Glucose 75 mg/dL (74-99); Lipase 47 U/L (23-300); Magnesium 1.7 mg/dL (1.6-2.3); Non-African American GFR(CKD) >90 (>60 ml/min/1.73 sqM); Potassium 4.1 mmol/L (3.5-5.1); Sodium 141 mmol/L (137-145); Total Bilirubin 1.2 mg/dL (0.2-1.3); Total Protein 7.6 g/dL (6.3-8.2)
--- NOTE | 2024-01-23 10:50 | XR ---
EXAMINATION TYPE: XR chest 2V DATE OF EXAM: 01/23/2024 10:15 AM CLINICAL INDICATION:Female, 33 years old with history of Chest Pain; [facility] COMPARISON: Chest radiographs from 09/30/2023 TECHNIQUE: XR chest 2V Frontal and lateral views of the chest. FINDINGS: Lungs/Pleura: There is no evidence of pleural effusion, focal consolidation, or pneumothorax. Pulmonary vascularity: Unremarkable. Heart/mediastinum: Cardiomediastinal silhouette is unremarkable. Musculoskeletal: No acute osseous pathology. IMPRESSION: No acute cardiopulmonary disease/process.
--- NOTE | 2024-01-23 11:20 | ED ---
Chest Pain HPI - General Chief Complaint: Chest Pain Stated Complaint: Chest Pains Time Seen by Provider: 01/23/24 09:12 Source: patient, RN notes reviewed Mode of arrival: ambulatory Limitations: no limitations - History of Present Illness Initial Comments: 33-year-old female presents emergency department complaint of chest pain. Patient states that she has had some on and off symptoms recent. Patient states certain things make it worse. Patient denies any prior cardiac disease she does have reflux issues does not take any medications for this. She denies any back pain or shortness of breath. Patient states she does have some pain when she takes a deep inspiration. No fevers or chills no cough or cold-like symptoms. - Related Data Home Medications Medication Instructions Recorded Confirmed Pregabalin [Lyrica] 450 mg PO HS 09/22/20 01/23/24 ALPRAZolam [Xanax] 0.25 mg PO BID PRN 01/23/24 01/23/24 Ibuprofen [Motrin] 800 mg PO DIRECTED PRN 01/23/24 01/23/24 Naltrexone HCl [Revia] 50 mg PO DIRECTED 01/23/24 01/23/24 Previous Rx's Medication Instructions Recorded Famotidine [Pepcid] 20 mg PO BID #28 tablet 01/23/24 Allergies Allergy/AdvReac Type Severity Reaction Status Date / Time No Known Allergies Allergy Verified 01/23/24 10:56 Review of Systems ROS Statement: Those systems with pertinent positive or pertinent negative responses have been documented in the HPI. ROS Other: All systems not noted in ROS Statement are negative. EKG Findings - EKG Comments: EKG Findings:: EKG performed at 9: 15 sinus rhythm rate of 66 [place] 137 QRS 92 QT/QTc 380/393 - EKG Results: EKG: interpreted by MELI Past Medical History Past Medical History: No Reported History Additional Past Medical History / Comment(s): restless legs History of Any Multi-Drug Resistant Organisms: None Reported Past Surgical History: Appendectomy, Cholecystectomy, Tubal Ligation Additional Past Surgical History / Comment(s): wisdom teeth extraction Past Anesthesia/Blood Transfusion Reactions: No Reported Reaction Past Psychological History: Anxiety, Bipolar, Depression Smoking Status: Never smoker Past Alcohol Use History: Daily, Heavy Past Drug Use History: Marijuana - Past Family History Brother(s) Additional Family Medical History / Comment(s): gall bladder surgery General Exam Limitations: no limitations General appearance: alert, in no apparent distress Head exam: Present: atraumatic, normocephalic, normal inspection Eye exam: Present: normal appearance, PERRL, EOMI. Absent: scleral icterus, conjunctival injection, periorbital swelling Neck exam: Present: normal inspection. Absent: tenderness, meningismus, lymphadenopathy Respiratory exam: Present: normal lung sounds bilaterally, chest wall tenderness. Absent: respiratory distress, wheezes, rales, rhonchi, stridor Cardiovascular Exam: Present: regular rate, normal rhythm, normal heart sounds. Absent: systolic murmur, diastolic murmur, rubs, gallop, clicks GI/Abdominal exam: Present: soft, normal bowel sounds. Absent: distended, tenderness, guarding, rebound, rigid Course Vital Signs 01/23/24 01/23/24 09:08 11:54 Temperature 97.8 F Pulse Rate 86 56 L Respiratory 16 16 Rate Blood Pressure 133/84 110/61 O2 Sat by Pulse 100 97 Oximetry Chest Pain MDM - MDM Was pt. sent in by a medical professional or institution (, PA, POTABLE WATER TREATMENT OPERATOR, urgent care, hospital, or [place] health care facility...) When possible be specific @ -No Did you speak to anyone other than the patient for history (EMS, parent, family, police, friend...)? What history was obtained from this source @ -No Did you review nursing and triage notes (agree or disagree)? Why? @ -I reviewed and agree with nursing and triage notes Were old charts reviewed (outside hosp., previous admission, EMS record, old EKG, old radiological studies, urgent care reports/EKG's, [place] [facility] records)? Report findings @ -No old charts were reviewed Differential Diagnosis (chest pain, altered mental status, abdominal pain women, abdominal pain men, vaginal bleeding, weakness, fever, dyspnea, syncope, headache, dizziness, GI bleed, back pain, seizure, CVA, palpatations, mental health, musculoskeletal)? @ -Differential Chest Pain: Stable Angina, Unstable Angina, STEMI, NSTEMI Aortic Dissection, Pneumothorax, Musculoskeletal, Esophageal Spasm GERD, Cholecystitis, Pancreatitis, Zoster, this is not meant to be an all-inclusive list. EKG interpreted by me (3pts min.). @ -As above X-rays interpreted by me (1pt min.). @ -Chest x-ray shows no acute cardiopulmonary process CT interpreted by me (1pt min.). @ -None done U/S interpreted by me (1pt. min.). @ -None done What testing was considered but not performed or refused? (CT, X-rays, U/S, labs)? Why? @ -None What meds were considered but not given or refused? Why? @ -None Did you discuss the management of the patient with other professionals (professionals i.e. , PA, POTABLE WATER TREATMENT OPERATOR, lab, RT, psych nurse, social professionals, homogenizer operator, teacher, marketing and communications officer, rn case manager)? Give summary @ -No Was smoking cessation discussed for >3mins.? @ -No Was critical care preformed (if so, how long)? @ -No Were there social determinants of health that impacted care today? How? (Homelessness, low income, unemployed, alcoholism, drug addiction, transportation, low edu. Level, literacy, decrease access to med. care, penitentiary, rehab)? @ -No Was there de-escalation of care discussed even if they declined (Discuss DNR or withdrawal of care, Hospice)? DNR status @ -No What co-morbidities impacted this encounter? (DM, HTN, Smoking, COPD, CAD, Cancer, CVA, ARF, Chemo, Hep., AIDS, mental health diagnosis, sleep apnea, morbid obesity)? @ -None Was patient admitted / discharged? Hospital course, mention meds given and route, prescriptions, significant lab abnormalities, going to OR and other pertinent info. @ -Discharge patient has atypical chest pain workup including labs, EKG and chest x-ray unremarkable. Patient symptoms are reproducible and more related to reflux. Patient discharged in stable condition return parameters discussed. Patient agrees with plan of discharge. Undiagnosed new problem with uncertain prognosis? @ -No Drug Therapy requiring intensive monitoring for toxicity (Heparin, Nitro, Insulin, Cardizem)? @ -No Were any procedures done? @ -No Diagnosis/symptom? @ -Atypical chest pain, GERD Acute, or Chronic, or Acute on Chronic? @ -Acute Uncomplicated (without systemic symptoms) or Complicated (systemic symptoms)? @ -Uncomplicated Side effects of treatment? @ -No Exacerbation, Progression, or Severe Exacerbation? @ -No Poses a threat to life or bodily function? How? (Chest pain, [place], [place], pneumonia, PE, COPD, DKA, ARF, appy, cholecystitis, CVA, Diverticulitis, Homicidal, Suicidal, threat to staff... and all critical care pts) @ -No Disposition Clinical Impression: Atypical chest pain Disposition: HOME SELF-CARE Condition: Stable Instructions (If sedation given, give patient instructions): Chest Pain (ED) Additional Instructions: Please return to the Emergency Department if symptoms worsen or any other concerns. Prescriptions: Famotidine [Pepcid] 20 mg PO BID #28 tablet Is patient prescribed a controlled substance at d/c from ED?: No Referrals: Gumaro Barroso MD [Primary Care Provider] - 1-2 days Time of Disposition: 11:20
[2024-01-23] MEDS: FAMOTIDINE 20 MG/2 ML VIAL IV STA (11:33)
[2024-01-23] MEDS: KETOROLAC 15 MG/ML 1 ML VIAL IVP STA (11:34)
[2024-01-23 12:02] VITALS: BP 110/61; PULSE 56
== END 2024-01-23 11:55 | disposition home or self-care (01) ==
LOC: EC 09:05
DX: K21.9 Gastro-esophageal reflux disease without esophagitis (principal)
CPT/HCPCS: 36415; 93005; 80053; 83690; 83735; 84484; 85025; 85610; 85730; 71046; 99285; 96374; 96375; 96361 ×2; J3490; J1885

== ENCOUNTER 2024-12-10 03:22 | Emergency (ER) | payer OTHER ==
[2024-12-10 03:31] VITALS: TEMP 98
--- NOTE | 2024-12-10 03:43 | ED ---
Chest Pain HPI - General Chief Complaint: Chest Pain Stated Complaint: Chest pain Time Seen by Provider: 12/10/24 03:31 Source: patient, RN notes reviewed, old records reviewed Mode of arrival: ambulatory Limitations: no limitations - History of Present Illness Initial Comments: This is a 34-year-old female with chest pain the emergency department. Patient presents with left-sided chest pain here in the emergency department today. Left chest chest pain to the left shoulder back with no shortness of breath. No recent fever cough or congestion no shortness of breath. No travel history no sick contacts patient feeling palpitations concern for arrhythmia. MD Complaint: chest pain -: days(s) Onset: during rest Pain Location: substernal, left chest Pain Radiation: LUE, back Severity: moderate Severity scale (1-10): 4 Quality: tightness Consistency: intermittent Improves With: nothing Worsens With: nothing Anginal Symptoms: other (0) Other Symptoms: palpitations Treatments Prior to Arrival: none - Related Data Home Medications Medication Instructions Recorded Confirmed Pregabalin [Lyrica] 450 mg PO HS 09/22/20 01/23/24 ALPRAZolam [Xanax] 0.25 mg PO BID PRN 01/23/24 01/23/24 Ibuprofen [Motrin] 800 mg PO DIRECTED PRN 01/23/24 01/23/24 Naltrexone HCl [Revia] 50 mg PO DIRECTED 01/23/24 01/23/24 Previous Rx's Medication Instructions Recorded Famotidine [Pepcid] 20 mg PO BID #28 tablet 01/23/24 Allergies Allergy/AdvReac Type Severity Reaction Status Date / Time No Known Allergies Allergy Verified 01/23/24 10:56 Review of Systems ROS Statement: Those systems with pertinent positive or pertinent negative responses have been documented in the HPI. ROS Other: All systems not noted in ROS Statement are negative. EKG Findings - EKG Comments: EKG Findings:: EKG is sinus bradycardia 52 NE 136 QRS 90 QTc 392 - EKG Results: EKG: interpreted by MELI Past Medical History Past Medical History: No Reported History Additional Past Medical History / Comment(s): restless legs History of Any Multi-Drug Resistant Organisms: None Reported Past Surgical History: Appendectomy, Cholecystectomy, Tubal Ligation Additional Past Surgical History / Comment(s): wisdom teeth extraction Past Anesthesia/Blood Transfusion Reactions: No Reported Reaction Past Psychological History: Anxiety, Bipolar, Depression Smoking Status: Never smoker Past Alcohol Use History: Daily, Heavy Past Drug Use History: Marijuana - Past Family History Brother(s) Additional Family Medical History / Comment(s): gall bladder surgery General Exam General appearance: alert, in no apparent distress Head exam: Present: atraumatic, normocephalic, normal inspection Eye exam: Present: normal appearance, PERRL, EOMI. Absent: scleral icterus, conjunctival injection, periorbital swelling ENT exam: Present: normal exam, mucous membranes moist Neck exam: Present: normal inspection. Absent: tenderness, meningismus, lymphadenopathy Respiratory exam: Present: normal lung sounds bilaterally. Absent: respiratory distress, wheezes, rales, rhonchi, stridor Cardiovascular Exam: Present: regular rate, normal rhythm, normal heart sounds. Absent: systolic murmur, diastolic murmur, rubs, gallop, clicks GI/Abdominal exam: Present: soft, normal bowel sounds. Absent: distended, tenderness, guarding, rebound, rigid Extremities exam: Present: normal inspection, full ROM, normal capillary refill. Absent: tenderness, pedal edema, joint swelling, calf tenderness Back exam: Present: normal inspection Neurological exam: Present: alert, oriented X3, CN II-XII intact Psychiatric exam: Present: normal affect, normal mood Skin exam: Present: warm, dry, intact, normal color. Absent: rash Course Vital Signs 12/10/24 12/10/24 03:26 05:38 Temperature 98.0 F Pulse Rate 78 51 L Respiratory 20 18 Rate Blood Pressure 151/85 111/72 O2 Sat by Pulse 100 97 Oximetry - Reevaluation(s) Reevaluation #1: Medical records reviewed Reevaluation #2: Patient symptoms improved Reevaluation #3: Patient informed of results questions answered Reevaluation #4: Was pt. sent in by a medical professional or institution (, PA, COMPUTER GRAPHICS ILLUSTRATOR, urgent care, hospital, or fpc...) When possible be specific @ -no Did you speak to anyone other than the patient for history (EMS, parent, family, police, friend...)? What history was obtained from this source @ -no Did you review nursing and triage notes (agree or disagree)? Why? @ -agree Are old charts reviewed (outside hosp., previous admission, EMS record, old EKG, old radiological studies, urgent care reports/EKG's, fpc records)? Report findings @ -yes Differential Diagnosis (chest pain, altered mental status, abdominal pain women, abdominal pain men, vaginal bleeding, weakness, fever, dyspnea, syncope, headache, dizziness, GI bleed, back pain, seizure, CVA, palpatations, mental health, musculoskeletal)? @ -prior EKG interpreted by me (3pts min.). @ -yes X-rays interpreted by me (1pt min.). @ -yes negative for acute disease CT interpreted by me (1pt min.). @ -no U/S interpreted by me (1pt. min.). @ -no What testing was considered but not performed or refused? (CT, X-rays, U/S, labs)? Why? @ -none What meds were considered but not given or refused? Why? @ -none Did you discuss the management of the patient with other professionals (professionals i.e. , PA, COMPUTER GRAPHICS ILLUSTRATOR, lab, RT, psych nurse, social services director, coping machine assembler, teacher, chief sustainability officer, wrapper caser)? Give summary @ -no Was smoking cessation discussed for >3mins.? @ -no Was critical care preformed (if so, how long)? @ -no Were there social determinants of health that impacted care today? How? (Homelessness, low income, unemployed, alcoholism, drug addiction, munoz sportation, low edu. Level, literacy, decrease access to med. care, [facility], rehab)? @ -none Was there de-escalation of care discussed even if they declined (Discuss DNR or withdrawal of care, Hospice)? DNR status @ -no What co-morbidities impacted this encounter? (DM, HTN, Smoking, COPD, CAD, Cancer, CVA, ARF, Chemo, Hep., AIDS, mental health diagnosis, sleep apnea, morbid obesity)? @ -none Was patient admitted / discharged? Hospital course, mention meds given and route, prescriptions, significant lab abnormalities, going to OR and other pertinent info. @ - 34 female to ER with chest pain. Normal EKG, chest x-ray and troponin here in the ER. Patient has no history of DVT or blood clots. Patient can be discharged home normal vital signs Discharge Undiagnosed new problem with uncertain prognosis? @ -no Drug Therapy requiring intensive monitoring for toxicity (Heparin, Nitro, Insulin, Cardizem)? @ -no Were any procedures done? @ -no Diagnosis/symptom? @ -Chest pain Acute, or Chronic, or Acute on Chronic? @ -Acute Uncomplicated (without systemic symptoms) or Complicated (systemic symptoms)? @ -Complicated Side effects of treatment? @ -no Exacerbation, Progression, or Severe Exacerbation? @ -exacerbation Poses a threat to life or bodily function? How? (Chest pain, [place], [place], pneumonia, PE, COPD, DKA, ARF, appy, cholecystitis, CVA, Diverticulitis, Homicidal, Suicidal, threat to staff... and all critical care pts) @ -yes with chest pain Reevaluation #5: Differential Chest Pain: Stable Angina, Unstable Angina, STEMI, NSTEMI Aortic Dissection, Pneumothorax, Musculoskeletal, Esophageal Spasm GERD, Cholecystitis, Pancreatitis, Zoster, this is not meant to be an all-inclusive list. Chest Pain MDM - MDM 34 female to ER with chest pain. Normal EKG, chest x-ray and troponin here in the ER. Patient negative D-dimer here in the emergency department. Patient can be discharged home normal vital signs Disposition Clinical Impression: Atypical chest pain, Chest pain Disposition: HOME SELF-CARE Condition: Fair Instructions (If sedation given, give patient instructions): Chest Pain (ED) Is patient prescribed a controlled substance at d/c from ED?: No Referrals: Gumaro Barroso MD [Primary Care Provider] - 1-2 days Time of Disposition: 04:45
[2024-12-10 04:09] LABS: Basophils # (A) 0.1 k/uL (0-0.2); Basophils % (A) 1 %; Eosinophils # (A) 0.3 k/uL (0-0.7); Eosinophils % (A) 5 %; HCT 40.3 % (34.0-46.0); HGB 13.8 gm/dL (11.4-16.0); Lymphocytes # (A) 1.9 k/uL (1.0-4.8); Lymphocytes % (A) 27 %; MCH 32.9 pg (25.0-35.0); MCHC 34.1 g/dL (31.0-37.0); MCV 96.4 fL (80.0-100.0); Mean Platelet Volume 8.5; Monocytes # (A) 0.5 k/uL (0-1.0); Monocytes % (A) 6 %; Neutrophils # (A) 4.1 k/uL (1.3-7.7); Neutrophils % (A) 59 %; Platelet Count 265 k/uL (150-450); RBC 4.18 m/uL (3.80-5.40); RDW 12.2 % (11.5-15.5)
[2024-12-10] MEDS: SODIUM CHLORIDE 0.9% 1,000 ML IV STA (04:13)
[2024-12-10] MEDS: KETOROLAC 15 MG/ML 1 ML VIAL IVP STA (04:13)
[2024-12-10 04:27] LABS: INR 0.9 (<1.2); Prothrombin Time 10.5 sec (10.0-12.5)
[2024-12-10 04:32] LABS: ALT 15 U/L (4-34); AST 24 U/L (14-36); African American GFR (CKD) >90 (>60 ml/min/1.73 sqM); Albumin 4.3 g/dL (3.5-5.0); Alkaline Phosphatase 41 U/L (38-126); Anion Gap 7 mmol/L; Blood Urea Nitrogen 12 mg/dL (7-17); Calcium 9.5 mg/dL (8.4-10.2); Carbon Dioxide 25 mmol/L (22-30); Chloride 104 mmol/L (98-107); Glucose 88 mg/dL (74-99); Lipase 83 U/L (23-300); Magnesium 1.8 mg/dL (1.6-2.3); Non-African American GFR(CKD) >90 (>60 ml/min/1.73 sqM); Sodium 136 mmol/L (137-145)
[2024-12-10 04:40] LABS: NT-Pro-B-Type Natriuretic Pept 28 pg/mL
--- NOTE | 2024-12-10 04:40 | XR ---
EXAM: XR Chest, 2 Views CLINICAL HISTORY: ITS.REASON XR Reason: cp TECHNIQUE: Frontal and lateral views of the chest. COMPARISON: No relevant prior studies available. FINDINGS: Lungs: Unremarkable. No consolidation. Pleural space: Unremarkable. No pneumothorax. Heart: Unremarkable. No cardiomegaly. Mediastinum: Unremarkable. Bones/joints: Unremarkable. IMPRESSION: Normal chest x-rays.
[2024-12-10] MEDS: IBUPROFEN 600 MG STARTER PACK 4 TAB BTL PO STA (05:34)
[2024-12-10] MEDS: traMADol 50 MG STARTER PACK 3 TAB BTL PO STA (05:34)
[2024-12-10 05:39] VITALS: BP 111/72; PULSE 51; RESP 18
== END 2024-12-10 05:38 | disposition home or self-care (01) ==
LOC: EC 03:22
DX: R07.89 Other chest pain (principal)
CPT/HCPCS: 36415; 93005; 85379; 83880; 80053; 83690; 83735; 84484; 85025; 85610; 85730; 71046; 99285; 96374; 96361; J1885

== ENCOUNTER 2025-03-02 19:06 | Emergency (ER) | payer OTHER ==
[2025-03-02 19:22] VITALS: TEMP 98.5
--- NOTE | 2025-03-02 19:55 | ED ---
Skin/Abscess/FB HPI - General Chief complaint: Skin/Abscess/Foreign Body Stated complaint: L Thumb Injury Time Seen by Provider: 03/02/25 19:23 Source: patient, RN notes reviewed Mode of arrival: ambulatory Limitations: no limitations - History of Present Illness Initial comments: 34-year-old female with no reported medical conditions presents emergency room with referral from urgent care for concerns of a puncture wound to her left ventral thumb. Patient states that she is using a pocket knife when she accidentally injured her hand causing a puncture wound. Patient was evaluated urgent care with concern for decreased mobility of her thumb where she is presenting for further evaluation. Patient denies paresthesias states that she is able to move her thumb however this elicits pain. She denies blood thinner use. Unaware when last vaccination was. No other acute complaints this time. - Related Data Home Medications Medication Instructions Recorded Confirmed Pregabalin [Lyrica] 450 mg PO HS 09/22/20 01/23/24 ALPRAZolam [Xanax] 0.25 mg PO BID PRN 01/23/24 01/23/24 Ibuprofen [Motrin] 800 mg PO DIRECTED PRN 01/23/24 01/23/24 Naltrexone HCl [Revia] 50 mg PO DIRECTED 01/23/24 01/23/24 Previous Rx's Medication Instructions Recorded Famotidine [Pepcid] 20 mg PO BID #28 tablet 01/23/24 Allergies Allergy/AdvReac Type Severity Reaction Status Date / Time No Known Allergies Allergy Verified 03/02/25 19:22 Review of Systems ROS Statement: Those systems with pertinent positive or pertinent negative responses have been documented in the HPI. ROS Other: All systems not noted in ROS Statement are negative. Past Medical History Past Medical History: No Reported History Additional Past Medical History / Comment(s): restless legs History of Any Multi-Drug Resistant Organisms: None Reported Past Surgical History: Appendectomy, Cholecystectomy, Tubal Ligation Additional Past Surgical History / Comment(s): wisdom teeth extraction Past Anesthesia/Blood Transfusion Reactions: No Reported Reaction Past Psychological History: Anxiety, Bipolar, Depression Smoking Status: Never smoker Past Alcohol Use History: None Reported Past Drug Use History: Marijuana - Past Family History Brother(s) Additional Family Medical History / Comment(s): gall bladder surgery General Exam Limitations: no limitations General appearance: alert, in no apparent distress ENT exam: Present: normal exam, mucous membranes moist Neck exam: Present: normal inspection. Absent: tenderness, meningismus, lymphadenopathy Respiratory exam: Present: normal lung sounds bilaterally. Absent: respiratory distress, wheezes, rales, rhonchi, stridor Cardiovascular Exam: Present: regular rate, normal rhythm, normal heart sounds. Absent: systolic murmur, diastolic murmur, rubs, gallop, clicks Left Hand Wrist exam: Present: tenderness, swelling, laceration (Ventral thumb region measuring 0.25 cm) Neuro motor exam: Present: thumb opposition intact, thumb IP flexion intact, thumb adduction intact Vascular: Present: normal capillary refill, radial pulse (2+). Absent: vascular compromise Back exam: Present: normal inspection Neurological exam: Present: alert, oriented X3, CN II-XII intact Course Vital Signs 03/02/25 03/02/25 19:18 20:48 Temperature 98.5 F Pulse Rate 71 66 Respiratory 17 18 Rate Blood Pressure 127/82 122/78 O2 Sat by Pulse 98 97 Oximetry Medical Decision Making - Medical Decision Making Was pt. sent in by a medical professional or institution (, PA, PROCESS CONTROL ENGINEER, urgent care, hospital, or usp...) When possible be specific @ -Patient was advised by urgent care to report to the emergency department for further evaluation. Did you speak to anyone other than the patient for history (EMS, parent, family, police, friend...)? What history was obtained from this source @ -No Did you review nursing and triage notes (agree or disagree)? Why? @ -I reviewed and agree with nursing and triage notes Were old charts reviewed (outside hosp., previous admission, EMS record, old EKG, old radiological studies, urgent care reports/EKG's, usp records)? Report findings @ -No old charts were reviewed Differential Diagnosis (chest pain, altered mental status, abdominal pain women, abdominal pain men, vaginal bleeding, weakness, fever, dyspnea, syncope, headache, dizziness, GI bleed, back pain, seizure, CVA, palpatations, mental health, musculoskeletal)? @ -Puncture wound, tendon injury, laceration, skin avulsion, this list is not all inclusive EKG interpreted by me (3pts min.). @ -None X-rays interpreted by me (1pt min.). @ -X-ray of the left hand no acute osseous abnormality. CT interpreted by me (1pt min.). @ -None done U/S interpreted by me (1pt. min.). @ -None done What testing was considered but not performed or refused? (CT, X-rays, U/S, labs)? Why? @ -None What meds were considered but not given or refused? Why? @ -None Did you discuss the management of the patient with other professionals (professionals i.e. DrMarissa, PA, PROCESS CONTROL ENGINEER, lab, RT, psych nurse, social media manager, credentialing specialist, teacher, aoc director intelligence officer, case monitor)? Give summary @ -No Was smoking cessation discussed for >3mins.? @ -No Was critical care preformed (if so, how long)? @ -No Were there social determinants of health that impacted care today? How? (Homelessness, low income, unemployed, alcoholism, drug addiction, transportation, low edu. Level, literacy, decrease access to med. care, [facility], rehab)? @ -No Was there de-escalation of care discussed even if they declined (Discuss DNR or withdrawal of care, Hospice)? DNR status @ -No What co-morbidities impacted this encounter? (DM, HTN, Smoking, COPD, CAD, Cancer, CVA, ARF, Chemo, Hep., AIDS, mental health diagnosis, sleep apnea, morbid obesity)? @ -None Was patient admitted / discharged? Hospital course, mention meds given and route, prescriptions, significant lab abnormalities, going to OR and other pertinent info. @ -Discharge. 34-year-old female seen in the emergency department with complaints of a left hand puncture wound with referral from urgent care. Overall patient is well-appearing and full range of motion is intact of the left thumb however this elicits pain. Neurovascularly intact. Patient was offered pain medication was declined. Tetanus vaccine is updated. X-rays unremarkable. Patient is placed in a Angelo wrap and instructed to follow-up with primary care provider. Return parameters discussed. Case discussed with Dr. Garcias Undiagnosed new problem with uncertain prognosis? @ -No Drug Therapy requiring intensive monitoring for toxicity (Heparin, Nitro, Insulin, Cardizem)? @ -No Were any procedures done? @ -No Diagnosis/symptom? @ -laceration/puncture wound Acute, or Chronic, or Acute on Chronic? @ -acute Uncomplicated (without systemic symptoms) or Complicated (systemic symptoms)? @ -uncomplicated Side effects of treatment? @ -No Exacerbation, Progression, or Severe Exacerbation? @ -No Poses a threat to life or bodily function? How? (Chest pain, [place], [place], pneumonia, PE, COPD, DKA, ARF, appy, cholecystitis, CVA, Diverticulitis, Homicidal, Suicidal, threat to staff... and all critical care pts) @ -No Disposition Clinical Impression: Puncture wound Disposition: HOME SELF-CARE Condition: Good Instructions (If sedation given, give patient instructions): Puncture Wound (ED) Additional Instructions: Please return to the Emergency Department if symptoms worsen or any other concerns. Is patient prescribed a controlled substance at d/c from ED?: No Referrals: Gumaro Barroso MD [Primary Care Provider] - 1-2 days Time of Disposition: 20:18
--- NOTE | 2025-03-02 20:01 | XR ---
EXAMINATION TYPE: XR hand complete LT DATE OF EXAM: 03/02/2025 7:50 PM COMPARISON: None CLINICAL INDICATION: Female, 34 years old with history of puncture wound to ventral thumb, pain; PHH, pain TECHNIQUE: XR hand complete LT 3 views were obtained. FINDINGS: Normal alignment of the visualized joints. No acute osseous pathology is identified. No e vidence of soft tissue swelling. No significant degeneration . No radiopaque foreign body. IMPRESSION: 1. No acute osseous pathology. 2. No radiopaque foreign body. [facility], , 03/02/2025 7:58 PM
[2025-03-02] MEDS: ACETAMINOPHEN TAB 500 MG TAB PO STA (20:04)
[2025-03-02] MEDS: DIPH,PERTUS(ACELL)TETVAC-LF 0.5 ML VIAL IM ONE (20:05)
[2025-03-02 20:49] VITALS: BP 122/78; PULSE 66; RESP 18
== END 2025-03-02 20:49 | disposition home or self-care (01) ==
LOC: EC 19:06
DX: S61.032A Puncture wound without foreign body of left thumb without damage to nail, initial encounter (principal); Z23 Encounter for immunization; W26.0XXA Contact with knife, initial encounter
CPT/HCPCS: 90471; 90715; 99283